=== PATIENT | female | born 2000 | race Caucasian/White ===

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

== ENCOUNTER 2019-05-28 14:23 | Emergency (ER) | payer OTHER ==
[~2019-05-28] VITALS: Ht 157.5 cm; Wt 72.6 kg
[~2019-05-28 14:23] MED LIST: LEXAPRO10 MG PO
[2019-05-28 14:31] VITALS: Ht 157.5 cm; Wt 72.6 kg
[2019-05-28 16:12] VITALS: BP 118/73
== END 2019-05-28 16:12 | disposition home or self-care (01) ==
LOC: ED 14:23
DX: S62.660A Nondisplaced fracture of distal phalanx of right index finger, initial encounter for closed fracture (principal); F32.9 Major depressive disorder, single episode, unspecified; F41.9 Anxiety disorder, unspecified; W31.89XA Contact with other specified machinery, initial encounter; Y93.89 Activity, other specified; Y92.89 Other specified places as the place of occurrence of the external cause; Y99.0 Civilian activity done for income or pay
CPT/HCPCS: A4570